=== PATIENT | male | born 1975 | race Caucasian/White ===

== ENCOUNTER 2018-02-16 12:18 | Emergency (ER) | payer SELFPAY ==
[~2018-02-16] VITALS: Ht 172.7 cm; Wt 75.0 kg
[2018-02-16] MEDS ORDERED: SODIUM CHLORIDE 0.9% 1,000 ML IV ONE (12:31)
[2018-02-16] MEDS ORDERED: FAMOTIDINE 20MG/2ML VIAL IV ONE (12:45)
[2018-02-16] MEDS ORDERED: DIPHENHYDRAMINE 50MG/ML VIAL IV ONE (12:45)
[2018-02-16] MEDS ORDERED: METHYLPREDNISOLONE SOD SUCC 125 MG/2 ML VIAL IV ONE (12:45)
[2018-02-16 14:09] LABS: BASOPHILS % 0.1 % (0.0-2.0); EOSINOPHILS % 0.4 % (0.0-5.0); HEMATOCRIT. 51.9 % (42.0-52.0); HEMOGLOBIN. 17.5 g/dL (14.0-18.0); LYMPHOCYTES % 27.8 % (20.0-50.0); MEAN CORPUSCULAR HEMOGLOBIN 29.2 pg (28.0-32.0); MONOCYTES % 4.6 % (2.0-8.0); NEUTROPHILS % 67.1 % (40.0-76.0); PLATELET 290 x1000/uL (130-400); RED BLOOD CELL COUNT 5.97 mill/uL (4.7-6.1); RED CELL DISTRIBUTION WIDTH 13.7 % (11.6-14.6)
[2018-02-16 14:17] LABS: CHLORIDE 105 mEq/L (98-107)
[2018-02-16] MEDS ORDERED: POTASSIUM CHLORIDE 20MEQ TABLET SR PO ONE (14:30)
[2018-02-16 15:04] VITALS: BP 128/84
== END 2018-02-16 15:32 | disposition home or self-care (01) ==
LOC: ER 12:18
DX: T78.40XA Allergy, unspecified, initial encounter (principal); T78.2XXA Anaphylactic shock, unspecified, initial encounter; X58.XXXA Exposure to other specified factors, initial encounter
CPT/HCPCS: 36415; 80053; 85025; 93005; 96374; 96375; 99285; J1200; J2930; J3490; J7030